=== PATIENT | female | born 1950 | race African-American/Black ===

== ENCOUNTER 2022-04-10 12:41 | Emergency (ER) | payer OTHER ==
[~2022-04-10] VITALS: Ht 152.4 cm; Wt 109.8 kg
--- NOTE | 2022-04-10 12:44 | NUR ---
JARR[facility] ALS TO ER BED 4
[2022-04-10 12:45] VITALS: BP 174/92
--- NOTE | 2022-04-10 12:50 | NUR ---
Pt BIBA BLS coming from getting her nails done c/o having trouble breathing. On scene medics state her o2 saturation was at 80% . Currently O2 saturation is at 95% on NC 5L/min. Other vitals stable. Pt is A&Ox4. Skin intact. NKA. Has hx of Asthma and COPD. No chest pain and denies n/v. Bed in lowest posiiton. 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
--- NOTE | 2022-04-10 12:52 | NUR ---
DR AUGUSTINE AT BEDSIDE FOR EVAL
[2022-04-10] MEDS ORDERED: ALBUTEROL SULFATE/IPRATROPIU 3 ML SOL IH ONE (12:55)
--- NOTE | 2022-04-10 13:00 | NUR ---
DR AUGUSTINE AT BEDSIDE EVALUATING PT
--- NOTE | 2022-04-10 13:00 | NUR ---
EKG being done at bedside.
--- NOTE | 2022-04-10 13:15 | NUR ---
PTS SON PHILIPP DIAZ [phone]
--- NOTE | 2022-04-10 13:19 | NUR ---
RT at bedside.
[2022-04-10 13:21] LABS: PLATELET COUNT (AUTO) 284 K/uL (140-450); WHITE BLOOD COUNT (AUTO) 7.7 K/uL (4.8-10.8)
[2022-04-10 13:33] LABS: CHLORIDE 105 mmol/L (98-107); CREATININE 0.9 mg/dL (0.6-1.3); GLUCOSE 173 mg/dL (74-106); SODIUM SERUM 143 mmol/L (136-145); UREA NITROGEN, BLOOD 15 mg/dL (7-18)
[2022-04-10 13:36] LABS: BASOPHILS # (AUTO) 0.1 K/uL (0.00-0.22); BASOPHILS % (AUTO) 0.7 % (0.0-2.0); EOSINOPHILS # (AUTO) 0.2 K/uL (0-0.4); EOSINOPHILS % (AUTO) 2.4 % (0.0-4.0); HEMATOCRIT 38.1 % (36-48); HEMOGLOBIN 11.6 g/dL (12.0-16.0); LYMPHOCYTES # (AUTO) 1.7 K/uL (2.5-16.5); LYMPHOCYTES % (AUTO) 22.2 % (20.5-51.1); MEAN CORPUSCULAR HEMOGLOBIN 24 pg (27-31); MEAN CORPUSCULAR HGB CONC 30 g/dL (33-37); MEAN CORPUSCULAR VOLUME 78.7 fL (80-94); MONOCYTES # (AUTO) 0.8 K/uL (0.8-1.0); NEUTROPHILS % (AUTO) 64.7 % (42.2-75.2); RED BLOOD CELL COUNT(AUTO) 4.84 MIL/uL (4.20-5.40); RED CELL DISTRIBUTION WIDTH 18.3 % (11.6-13.7)
[2022-04-10] MEDS ORDERED: methylPREDNISolone SS 40 MG in WATER STERILE 1 ML IV ONE (14:20)
[2022-04-10] MEDS ORDERED: AZIT250T4 PO (14:22)
[2022-04-10] MEDS ORDERED: PRED20TA5 PO (14:22)
[2022-04-10] MEDS ORDERED: methylPREDNISolone SS 40 MG/ML VIAL IVP SCH (14:25)
--- NOTE | 2022-04-10 14:27 | NUR ---
The patient's care was reviewed and supervised by [facility], RN.
[2022-04-10] MEDS ORDERED: ALBU0.0912 IH (17:41)
[2022-04-10 18:13] VITALS: BP 135/53
--- NOTE | 2022-04-10 18:13 | NUR ---
Patient discharged with v/s stable. Written and verbal after care instructions given. Patient alert, oriented and verbalized understanding of instructions. Wheel Chair Assisted with to car. All questions addressed prior to discharge. ID band removed. Patient advised to follow up with PMD. Rx of Prednisone and Azithromycon given. Opportunity to ask questions provided and answered.
--- NOTE | 2022-04-10 18:19 | NUR ---
The patient's care was reviewed and supervised by [facility], RN.
== END 2022-04-10 18:13 | disposition home or self-care (01) ==
LOC: MED 12:41
DX: J44.1 Chronic obstructive pulmonary disease with (acute) exacerbation (principal); E11.9 Type 2 diabetes mellitus without complications; I10 Essential (primary) hypertension; Z79.899 Other long term (current) drug therapy
CPT/HCPCS: 36415; 80048; 84484; 85025; 93005; 94640; 99285